=== PATIENT | male | born 1985 | race Caucasian/White ===

== ENCOUNTER 2016-06-03 00:33 | Emergency (ER) | payer MEDICAID ==
[~2016-06-03] VITALS: Ht 182.9 cm; Wt 136.4 kg
[~2016-06-03 00:33] MED LIST: BACTRIM DS 8001 TAB PO; DEPAKOTE500 MG PO; FLEXERIL 1010 MG/TAB PO; MINIPRESS2 MG PO; NO HOME MEDICATIONS; NORCO 325 MG-51 TAB PO; PROZAC 20MG20 MG PO; TUSS PO
[2016-06-03 00:34] VITALS: BP 156/85; TEMP 97.9
[2016-06-03] MEDS ORDERED: ESTRACE2 MG PO (00:38)
[2016-06-03] MEDS ORDERED: ALDACTONE 25MG25 M1 PO (00:38)
[2016-06-03 01:23] LABS: BASO # 0.1 (0.0-0.2); BASO % 0.9 % (0.0-2.0); EOS # 0.1 (0.0-0.7); EOS % 1.4 % (0-4.0); GRAN % 52.6 % (42.2-75.2); HEMATOCRIT 39.4 % (42.0-52.0); HEMOGLOBIN 13.2 g/dl (13.5-18.0); LYMPH # 2.7 (1.2-3.4); LYMPH % 29.1 % (20.0-51.0); MEAN CELL VOLUME 85 fl (80.0-100.0); MEAN CORPUSCULAR HEMOGLOBIN 28 pg (27.0-31.0); MEAN CORPUSCULAR HGB CONC 34 g/dl (33.0-37.0); MEAN PLATELET VOLUME 10.7 fl (7.4-10.4); MONO # 1.5 (0.1-0.6); MONO % 15.7 % (1.7-9.3); PLATELET COUNT 302 K/mm3 (130-400); RED BLOOD COUNT 4.65 M/mm3 (4.20-5.60); WHITE BLOOD COUNT 9.4 K/mm3 (4.8-10.8)
[2016-06-03 01:29] LABS: ADJUSTED CALCIUM 8.4 mg/dL (8.4-10.2); ALANINE AMINOTRANSFERASE 39 U/L (21-72); ALBUMIN 4.5 gm/dL (3.5-5.0); ALKALINE PHOSPHATASE 52 U/L (50-136); ANION GAP 15 mmol/L (7-16); BILIRUBIN,TOTAL 0.7 mg/dL (0.0-1.0); BLOOD UREA NITROGEN 15 mg/dL (9-20); CALCIUM 8.8 mg/dL (8.4-10.2); CARBON DIOXIDE 21 mmol/L (22-30); CHLORIDE 105 mmol/L (98-107); CREATININE, serum 0.76 mg/dL (0.66-1.25); GLUCOSE 97 mg/dL (74-106); LIPASE 67 U/L (23-300); POTASSIUM 3.6 mmol/L (3.4-5.0); SODIUM 141 mmol/L (137-145); TOTAL PROTEIN 7.7 gm/dL (6.4-8.2)
[2016-06-03 01:42] LABS: TROPONIN-I < 0.012 ng/mL (0.000-0.034)
[2016-06-03 01:59] VITALS: PULSE 92
== END 2016-06-03 02:00 | disposition home or self-care (01) ==
LOC: COL.ER 00:33
PROVIDERS: Emergency Medicine
DX: R07.89 Other chest pain (principal); I10 Essential (primary) hypertension; F17.210 Nicotine dependence, cigarettes, uncomplicated

== ENCOUNTER 2016-10-29 20:04 | Emergency (ER) | payer MEDICAID ==
[~2016-10-29] VITALS: Ht 182.9 cm; Wt 140.0 kg
[~2016-10-29 20:04] MED LIST changes: +ALDACTONE 25MG25 M1 PO; +ESTRACE2 MG PO
[2016-10-29 20:06] VITALS: BP 142/70; TEMP 97.4
[2016-10-29] MEDS ORDERED: NAPROSYN 2250 MG/TAB PO (20:08)
[2016-10-29] MEDS ORDERED: IMITREX 25MG TA25 MG PO (20:09)
[2016-10-29 21:51] VITALS: PULSE 66
== END 2016-10-29 21:50 | disposition home or self-care (01) ==
LOC: COL.ER 20:04
DX: R51 Headache (principal); F31.9 Bipolar disorder, unspecified; Z98.890 Other specified postprocedural states
CPT/HCPCS: J1200; J1885; J2765; J7030

== ENCOUNTER 2017-03-29 02:23 | Emergency (ER) | payer MEDICAID ==
[~2017-03-29] VITALS: Ht 182.9 cm; Wt 140.9 kg
[~2017-03-29 02:23] MED LIST changes: +IMITREX 25MG TA25 MG PO; +NAPROSYN 2250 MG/TAB PO
[2017-03-29 02:32] VITALS: BP 133/78; TEMP 99.5
[2017-03-29 03:40] VITALS: PULSE 92
== END 2017-03-29 04:31 | disposition home or self-care (01) ==
LOC: COL.ER 02:23
DX: J06.9 Acute upper respiratory infection, unspecified (principal); F17.210 Nicotine dependence, cigarettes, uncomplicated

== ENCOUNTER 2017-04-21 23:17 | Emergency (ER) | payer MEDICAID ==
[~2017-04-21] VITALS: Ht 182.9 cm; Wt 136.4 kg
[2017-04-21 23:26] VITALS: BP 123/76; TEMP 98.7
[2017-04-21] MEDS ORDERED: ALDACTONE 25MG25 M1 PO (23:30)
[2017-04-22 00:23] VITALS: PULSE 84
== END 2017-04-22 00:23 | disposition home or self-care (01) ==
LOC: COL.ER 23:17
DX: T24.202A Burn of second degree of unspecified site of left lower limb, except ankle and foot, initial encounter (principal); Z23 Encounter for immunization; X08.8XXA Exposure to other specified smoke, fire and flames, initial encounter